=== PATIENT | female | born 1970 | race Caucasian/White ===

== ENCOUNTER 2017-10-12 15:10 | Inpatient (IN) | payer BC ==
[2017-10-12] MEDS: NS 1,000 ML IV (16:46)
[2017-10-12] MEDS: ONDANSETRON 4MG/2ML VIAL (J2405) IV (16:46)
[2017-10-12 16:49] LABS: BASO # 0.1 10^3/uL (0.0-0.2); BASO % 0.2 % (0.0-1.0); IMMATURE GRANULOCYTE # 0.1 10^3/uL (0-0); IMMATURE GRANULOCYTE % 0.6 % (0-0); LYMPH # 0.5 10^3/uL (1.5-4.5); LYMPH % 2.2 % (24.0-44.0); MEAN CORPUSCULAR HEMOGLOBIN 29.1 pg (27.0-33.0); MEAN CORPUSCULAR HGB CONC 34.6 g/dl (32.0-36.5); MEAN CORPUSCULAR VOLUME 84.1 fl (80.0-96.0); MONO # 0.1 10^3/uL (0.0-0.8); MONO % 0.4 % (0.0-5.0); NEUTROPHILS # 20.1 10^3/uL (1.8-7.7); NEUTROPHILS % 96.6 % (36.0-66.0); PLATELET COUNT, AUTOMATED 323 10^3/uL (150-450); RED CELL DISTRIBUTION WIDTH 12.1 % (11.5-14.5); WHITE BLOOD COUNT 20.8 10^3/uL (4.0-10.0)
[2017-10-12] MEDS: MORPHINE 4 MG/ML 1ML SYRINGE IV ×2 (16:52→17:37)
[2017-10-12 17:09] LABS: CONTROL LINE HCG INT CTR LINE PRESENT
[2017-10-12 17:10] LABS: ALBUMIN/GLOBULIN RATIO 0.87 (1.00-1.93); ALKALINE PHOSPHATASE 96 U/L (45-117); ALT/SGPT 26 U/L (12-78); AMYLASE 31 U/L (25-115); ANION GAP 10 MEQ/L (8-16); AST/SGOT 15 U/L (7-37); BILIRUBIN,DIRECT 0.2 MG/DL (0.0-0.2); BILIRUBIN,TOTAL 0.7 MG/DL (0.2-1.0); BLOOD UREA NITROGEN 12 MG/DL (7-18); CALCIUM LEVEL 8.3 MG/DL (8.5-10.1); CARBON DIOXIDE LEVEL 24 MEQ/L (21-32); CHLORIDE LEVEL 104 MEQ/L (98-107); CREATININE FOR GFR 1.21 MG/DL (0.55-1.02); GLUCOSE, FASTING 140 MG/DL (70-105); POTASSIUM SERUM 3.7 MEQ/L (3.5-5.1); SODIUM LEVEL 138 MEQ/L (136-145); TOTAL PROTEIN 8.6 GM/DL (6.4-8.2)
[2017-10-12] MEDS ORDERED: ISOVUE-370 76% 100ML VIAL (Q9967) As Ordered (17:14)
[2017-10-12 17:16] LABS: LACTIC ACID SEPSIS PROTOCOL 2.7 MMOL/L (0.4-2.0)
[2017-10-12] MEDS: ACETAMINOPHEN 325 MG TAB PO (18:05)
[2017-10-12] MEDS ORDERED: NS 1,000 ML IV (18:15)
[2017-10-12] MEDS: CEFTRIAXONE SOD 2 GM in APPROPRIATE DILUENT 1 EA IV (18:16)
[2017-10-12 18:19] LABS: CONTROL LINE UCG INT CTR LINE PRESENT
[2017-10-12 18:23] LABS: KETONE, URINE AUTO RFX NEGATIVE (NEGATIVE); MUCUS, URINE RFX SMALL (NEGATIVE); RBC, URINE AUTO RFX 54 /HPF (0-3); SPECIFIC GRAVITY UR AUTO RFX 1.028 (1.002-1.035); SQUAM EPITHELIAL CELL UR AURFX 1 /HPF (0-6)
[2017-10-12 18:25] LABS: LEUKOCYTE ESTERASE UR AUTO RFX 1+ (NEGATIVE); NITRITE, URINE AUTO RFX POSITIVE (NEGATIVE); WBC, URINE AUTO RFX 22 /HPF (0-3)
[2017-10-12] MEDS ORDERED: MIDAZOLAM INJ 2 MG/2 ML VIAL (J2250) As Ordered (18:35)
[2017-10-12] MEDS ORDERED: fentaNYL 100 MCG/2 ML INJECTION (J3010) As Ordered (18:35)
[2017-10-12] MEDS ORDERED: LIDOCAINE 2% INJ 100 MG/5 ML SDV (FOR ANES.) As Ordered (18:38)
[2017-10-12] MEDS ORDERED: PROPOFOL 200 MG/20 ML VIAL As Ordered (18:38)
[2017-10-12] MEDS: CONRAY-60 60% 50ML VIAL (Q9961) As Ordered (19:11)
[2017-10-12] MEDS: GENTAMICIN SULF INJ 80MG/2ML VIAL (J1580) As Ordered ×2 (19:12→19:28)
[2017-10-12] MEDS ORDERED: dexameTHASONE 4 MG/ML 1ML VIAL (J1100) As Ordered (19:26)
[2017-10-12] MEDS ORDERED: ONDANSETRON 4MG/2ML VIAL (J2405) As Ordered (19:26)
[2017-10-12] MEDS ORDERED: ONDANSETRON 4MG/2ML VIAL (J2405) IV ×2 (20:00→20:15)
[2017-10-12] MEDS ORDERED: MORPHINE 2 MG/ML 1ML SYRINGE IV (20:00)
[2017-10-12] MEDS ORDERED: fentaNYL 100 MCG/2 ML INJECTION (J3010) IV (20:15)
[2017-10-12] MEDS: DOCUSATE SODIUM 100 MG CAP PO (21:48)
[2017-10-12] MEDS: HEPARIN SOD (PORCINE) 5000 UNITS/ML VIAL SC (21:52)
[2017-10-12] MEDS: ACETAMINOPH W/CODEINE #3 TAB UD PO (22:15)
[2017-10-13] MEDS: LR 1,000 ML IV (00:26)
[2017-10-13] MEDS ORDERED: CEFAZOLIN SOD 1 GM in APPROPRIATE DILUENT 1 EA IV (03:00)
[2017-10-13] MEDS: GENTAMICIN 80 MG in APPROPRIATE DILUENT 1 EA IV (03:26)
[2017-10-13] MEDS: CEFAZOLIN SOD 1 GM in APPROPRIATE DILUENT 1 EA IV (04:29)
[2017-10-13] MEDS: D5W/LR 1,000 ML IV ×4 (06:31→19:24)
[2017-10-13] MEDS: HEPARIN SOD (PORCINE) 5000 UNITS/ML VIAL SC ×3 (06:35→20:38)
[2017-10-13 08:21] LABS: BASO # 0.1 10^3/uL (0.0-0.2); BASO % 0.3 % (0.0-1.0); IMMATURE GRANULOCYTE # 0.6 10^3/uL (0-0); IMMATURE GRANULOCYTE % 1.7 % (0-0); LYMPH # 1.1 10^3/uL (1.5-4.5); LYMPH % 3.2 % (24.0-44.0); MEAN CORPUSCULAR HEMOGLOBIN 29.1 pg (27.0-33.0); MEAN CORPUSCULAR HGB CONC 34.6 g/dl (32.0-36.5); MEAN CORPUSCULAR VOLUME 84.2 fl (80.0-96.0); MONO % 3.1 % (0.0-5.0); NEUTROPHILS % 91.7 % (36.0-66.0); PLATELET COUNT, AUTOMATED 244 10^3/uL (150-450); POS COUNT POS FLAG; POSITIVE DIFF POS FLAG; RED CELL DISTRIBUTION WIDTH 13.1 % (11.5-14.5); WHITE BLOOD COUNT 33.8 10^3/uL (4.0-10.0)
[2017-10-13] MEDS: NS 1,000 ML IV (08:24)
[2017-10-13] MEDS: GENTAMICIN 160 MG in D5W 50 ML IV (08:24)
[2017-10-13 08:37] LABS: ALBUMIN 2.8 GM/DL (3.2-5.2); ALKALINE PHOSPHATASE 58 U/L (45-117); ALT/SGPT 17 U/L (12-78); ANION GAP 9 MEQ/L (8-16); AST/SGOT 19 U/L (7-37); BILIRUBIN,TOTAL 0.4 MG/DL (0.2-1.0); BLOOD UREA NITROGEN 14 MG/DL (7-18); CALCIUM LEVEL 7.3 MG/DL (8.5-10.1); CARBON DIOXIDE LEVEL 23 MEQ/L (21-32); CHLORIDE LEVEL 109 MEQ/L (98-107); CREATININE FOR GFR 1.26 MG/DL (0.55-1.02); GLOMERULAR FILTRATION RATE 48.7 (>58); GLUCOSE, FASTING 145 MG/DL (70-105); POTASSIUM SERUM 3.8 MEQ/L (3.5-5.1); SODIUM LEVEL 141 MEQ/L (136-145); TOTAL PROTEIN 5.9 GM/DL (6.4-8.2)
[2017-10-13] MEDS: DOCUSATE SODIUM 100 MG CAP PO ×2 (08:39→20:38)
[2017-10-13] MEDS: oxyBUTYnin *DITROPAN XL* 5 MG TABCR PO (08:39)
[2017-10-13] MEDS: PANTOPRAZOLE 40MG TAB (PROTONIX) PO (08:40)
[2017-10-13 08:43] LABS: LACTIC ACID SEPSIS PROTOCOL 3.2 MMOL/L (0.4-2.0)
[2017-10-13] MEDS: SODIUM CHLORIDE 0.9% 1000 ML IV (10:45)
[2017-10-13] MEDS: PIPERACILLIN/TAZOBACTAM SOD 3.375 GM in APPROPRIATE DILUENT 1 EA IV ×3 (12:14→23:26)
[2017-10-13] MEDS: ACETAMINOPHEN TAB 650MG DOSE (2X325MG) PO (20:38)
[2017-10-14] MEDS: D5W/LR 1,000 ML IV (03:48)
[2017-10-14] MEDS: ACETAMINOPHEN TAB 650MG DOSE (2X325MG) PO ×2 (04:19→12:24)
[2017-10-14 05:12] LABS: MEAN CORPUSCULAR HEMOGLOBIN 29.2 pg (27.0-33.0); MEAN CORPUSCULAR HGB CONC 34.6 g/dl (32.0-36.5); MEAN CORPUSCULAR VOLUME 84.3 fl (80.0-96.0); PLATELET COUNT, AUTOMATED 214 10^3/uL (150-450); RED CELL DISTRIBUTION WIDTH 13.2 % (11.5-14.5)
[2017-10-14 05:27] LABS: ALBUMIN 2.5 GM/DL (3.2-5.2); ALBUMIN/GLOBULIN RATIO 0.64 (1.00-1.93); ALKALINE PHOSPHATASE 64 U/L (45-117); ALT/SGPT 17 U/L (12-78); ANION GAP 7 MEQ/L (8-16); AST/SGOT 24 U/L (7-37); BILIRUBIN,TOTAL 0.5 MG/DL (0.2-1.0); BLOOD UREA NITROGEN 10 MG/DL (7-18); CALCIUM LEVEL 7.9 MG/DL (8.5-10.1); CARBON DIOXIDE LEVEL 24 MEQ/L (21-32); CHLORIDE LEVEL 110 MEQ/L (98-107); CREATININE FOR GFR 0.85 MG/DL (0.55-1.02); GLOMERULAR FILTRATION RATE > 60.0 (>58); GLUCOSE, FASTING 132 MG/DL (70-105); MAGNESIUM LEVEL 1.9 MG/DL (1.8-2.4); POTASSIUM SERUM 3.2 MEQ/L (3.5-5.1); SODIUM LEVEL 141 MEQ/L (136-145); TOTAL PROTEIN 6.4 GM/DL (6.4-8.2)
[2017-10-14] MEDS: HEPARIN SOD (PORCINE) 5000 UNITS/ML VIAL SC ×3 (06:06→22:06)
[2017-10-14] MEDS: PIPERACILLIN/TAZOBACTAM SOD 3.375 GM in APPROPRIATE DILUENT 1 EA IV (06:06)
[2017-10-14 09:00] LABS: LACTIC ACID SEPSIS PROTOCOL 1.1 MMOL/L (0.4-2.0)
[2017-10-14] MEDS: POTASSIUM CHLORIDE 10 MEQ SR TABLET PO (09:01)
[2017-10-14] MEDS: DOCUSATE SODIUM 100 MG CAP PO ×2 (09:01→21:00)
[2017-10-14] MEDS: PANTOPRAZOLE 40MG TAB (PROTONIX) PO (09:01)
[2017-10-14] MEDS: oxyBUTYnin *DITROPAN XL* 5 MG TABCR PO (09:02)
[2017-10-14] MEDS: CEFTRIAXONE SOD 1 GM in APPROPRIATE DILUENT 1 EA IV (12:24)
[2017-10-14] MEDS: ACETAMINOPH W/CODEINE #3 TAB UD PO (16:57)
[2017-10-14] MEDS ORDERED: ISOVUE-370 76% 100ML VIAL (Q9967) As Ordered (17:44)
[2017-10-15] MEDS: CEFTRIAXONE SOD 1 GM in APPROPRIATE DILUENT 1 EA IV ×2 (00:42→12:03)
[2017-10-15] MEDS: ACETAMINOPHEN TAB 650MG DOSE (2X325MG) PO ×3 (00:43→21:28)
[2017-10-15 05:58] LABS: MEAN CORPUSCULAR HEMOGLOBIN 28.7 pg (27.0-33.0); MEAN CORPUSCULAR HGB CONC 33.6 g/dl (32.0-36.5); MEAN CORPUSCULAR VOLUME 85.3 fl (80.0-96.0); PLATELET COUNT, AUTOMATED 226 10^3/uL (150-450); WHITE BLOOD COUNT 15.8 10^3/uL (4.0-10.0)
[2017-10-15 06:16] LABS: ALBUMIN 2.6 GM/DL (3.2-5.2); ALBUMIN/GLOBULIN RATIO 0.67 (1.00-1.93); ALKALINE PHOSPHATASE 71 U/L (45-117); ALT/SGPT 17 U/L (12-78); ANION GAP 8 MEQ/L (8-16); AST/SGOT 20 U/L (7-37); BILIRUBIN,TOTAL 0.3 MG/DL (0.2-1.0); BLOOD UREA NITROGEN 8 MG/DL (7-18); CALCIUM LEVEL 8.1 MG/DL (8.5-10.1); CARBON DIOXIDE LEVEL 23 MEQ/L (21-32); CHLORIDE LEVEL 110 MEQ/L (98-107); CREATININE FOR GFR 0.84 MG/DL (0.55-1.02); GLOMERULAR FILTRATION RATE > 60.0 (>58); GLUCOSE, FASTING 86 MG/DL (70-105); MAGNESIUM LEVEL 1.9 MG/DL (1.8-2.4); POTASSIUM SERUM 3.6 MEQ/L (3.5-5.1); SODIUM LEVEL 141 MEQ/L (136-145); TOTAL PROTEIN 6.5 GM/DL (6.4-8.2)
[2017-10-15] MEDS: HEPARIN SOD (PORCINE) 5000 UNITS/ML VIAL SC ×3 (06:17→21:28)
[2017-10-15] MEDS: PANTOPRAZOLE 40MG TAB (PROTONIX) PO (10:10)
[2017-10-15] MEDS: DOCUSATE SODIUM 100 MG CAP PO ×2 (10:11→21:00)
[2017-10-15] MEDS: oxyBUTYnin *DITROPAN XL* 5 MG TABCR PO (10:11)
[2017-10-16] MEDS: CEFTRIAXONE SOD 1 GM in APPROPRIATE DILUENT 1 EA IV ×3 (00:32→23:38)
[2017-10-16] MEDS ORDERED: SLF 3 ML SYR IV (03:00)
[2017-10-16 04:57] LABS: MEAN CORPUSCULAR HEMOGLOBIN 29.5 pg (27.0-33.0); MEAN CORPUSCULAR HGB CONC 34.8 g/dl (32.0-36.5); MEAN CORPUSCULAR VOLUME 84.9 fl (80.0-96.0); PLATELET COUNT, AUTOMATED 269 10^3/uL (150-450); RED CELL DISTRIBUTION WIDTH 12.9 % (11.5-14.5); WHITE BLOOD COUNT 11.5 10^3/uL (4.0-10.0)
[2017-10-16 05:12] LABS: ALBUMIN 2.7 GM/DL (3.2-5.2); ALBUMIN/GLOBULIN RATIO 0.64 (1.00-1.93); ALKALINE PHOSPHATASE 95 U/L (45-117); ALT/SGPT 36 U/L (12-78); ANION GAP 7 MEQ/L (8-16); AST/SGOT 38 U/L (7-37); BILIRUBIN,TOTAL 0.3 MG/DL (0.2-1.0); BLOOD UREA NITROGEN 9 MG/DL (7-18); CALCIUM LEVEL 8.1 MG/DL (8.5-10.1); CARBON DIOXIDE LEVEL 25 MEQ/L (21-32); CHLORIDE LEVEL 110 MEQ/L (98-107); CREATININE FOR GFR 0.91 MG/DL (0.55-1.02); GLOMERULAR FILTRATION RATE > 60.0 (>58); GLUCOSE, FASTING 91 MG/DL (70-105); MAGNESIUM LEVEL 2.2 MG/DL (1.8-2.4); POTASSIUM SERUM 3.8 MEQ/L (3.5-5.1); SODIUM LEVEL 142 MEQ/L (136-145); TOTAL PROTEIN 6.9 GM/DL (6.4-8.2)
[2017-10-16] MEDS: SLF 3 ML SYR IV ×3 (05:33→23:37)
[2017-10-16] MEDS: HEPARIN SOD (PORCINE) 5000 UNITS/ML VIAL SC (05:33)
[2017-10-16] MEDS: PANTOPRAZOLE 40MG TAB (PROTONIX) PO (08:26)
[2017-10-16] MEDS: oxyBUTYnin *DITROPAN XL* 5 MG TABCR PO (08:26)
[2017-10-16] MEDS: ACETAMINOPHEN TAB 650MG DOSE (2X325MG) PO (21:07)
[2017-10-17] MEDS: ACETAMINOPHEN TAB 650MG DOSE (2X325MG) PO (02:05)
[2017-10-17] MEDS: SLF 3 ML SYR IV (05:09)
[2017-10-17 05:25] LABS: MEAN CORPUSCULAR HEMOGLOBIN 28.5 pg (27.0-33.0); MEAN CORPUSCULAR HGB CONC 34.2 g/dl (32.0-36.5); MEAN CORPUSCULAR VOLUME 83.4 fl (80.0-96.0); PLATELET COUNT, AUTOMATED 297 10^3/uL (150-450); RED CELL DISTRIBUTION WIDTH 12.6 % (11.5-14.5); WHITE BLOOD COUNT 11.9 10^3/uL (4.0-10.0)
[2017-10-17 05:40] LABS: ALBUMIN 2.8 GM/DL (3.2-5.2); ALBUMIN/GLOBULIN RATIO 0.82 (1.00-1.93); ALKALINE PHOSPHATASE 104 U/L (45-117); ALT/SGPT 59 U/L (12-78); ANION GAP 9 MEQ/L (8-16); AST/SGOT 49 U/L (7-37); BILIRUBIN,TOTAL 0.2 MG/DL (0.2-1.0); BLOOD UREA NITROGEN 11 MG/DL (7-18); CALCIUM LEVEL 7.9 MG/DL (8.5-10.1); CARBON DIOXIDE LEVEL 23 MEQ/L (21-32); CHLORIDE LEVEL 110 MEQ/L (98-107); CREATININE FOR GFR 0.81 MG/DL (0.55-1.02); GLOMERULAR FILTRATION RATE > 60.0 (>58); GLUCOSE, FASTING 91 MG/DL (70-105); MAGNESIUM LEVEL 2.4 MG/DL (1.8-2.4); POTASSIUM SERUM 3.8 MEQ/L (3.5-5.1); SODIUM LEVEL 142 MEQ/L (136-145); TOTAL PROTEIN 6.2 GM/DL (6.4-8.2)
[2017-10-17] MEDS: PANTOPRAZOLE 40MG TAB (PROTONIX) PO (09:06)
[2017-10-17] MEDS: oxyBUTYnin *DITROPAN XL* 5 MG TABCR PO (09:07)
== END 2017-10-17 10:02 | disposition home or self-care (01) | DRG 720 ==
LOC: M MSPAV 10-16 16:12 → M ED 15:10 → M SDC 18:57 → M PCU 20:40 → M SDC 21:18 → M PCU 20:00
PROC: 0T778DZ Dilation of Left Ureter with Intraluminal Device, Via Natural or Artificial Opening Endoscopic (ICD-10-PCS; principal; 2017-10-12 18:32)
DX: A41.9 Sepsis, unspecified organism (principal); E87.2 Acidosis; N20.1 Calculus of ureter; Z68.41 Body mass index [BMI] 40.0-44.9, adult; E66.9 Obesity, unspecified; K21.9 Gastro-esophageal reflux disease without esophagitis; B96.20 Unspecified Escherichia coli [E. coli] as the cause of diseases classified elsewhere; N39.0 Urinary tract infection, site not specified

== ENCOUNTER → 2017-10-29 | Outpatient (REF) | payer BC ==
[2017-10-29 18:16] LABS: AMORPHOUS SEDIMENT SMALL (NEGATIVE); APPEARANCE, URINE CLOUDY (CLEAR); BACTERIA, URINE AUTO NEGATIVE (NEGATIVE); BILIRUBIN, URINE AUTO NEGATIVE (NEGATIVE); BLOOD, URINE BLOOD 3+ (NEGATIVE); COLOR, URINE YELLOW (YELLOW); GLUCOSE, URINE (UA) AUTO NEGATIVE (NEGATIVE); KETONE, URINE AUTO NEGATIVE (NEGATIVE); LEUKOCYTE ESTERASE, URINE AUTO 2+ (NEGATIVE); MUCUS, URINE SMALL (NEGATIVE); NITRITE, URINE AUTO NEGATIVE (NEGATIVE); PROTEIN, URINE AUTO 2+ mg/dL (NEGATIVE); RBC, URINE AUTO TNTC /HPF (0-3); SQUAMOUS EPITHELIAL CELL UR AU 2 /HPF (0-6); UROBILINOGEN, URINE AUTO 0.2 mg/dL (0.0-2.0); WBC, URINE AUTO 43 /HPF (0-3)
== END ==
LOC: M SMT 17:22
DX: N13.2 Hydronephrosis with renal and ureteral calculous obstruction (principal); N39.0 Urinary tract infection, site not specified
CPT/HCPCS: 81001

== ENCOUNTER 2017-11-02 05:42 | Day surgery (SDC) | payer BC ==
[2017-11-02] MEDS ORDERED: LIDOCAINE 2% INJ 100 MG/5 ML SDV (FOR ANES.) As Ordered ×2 (07:04→10:53)
[2017-11-02] MEDS ORDERED: METOCLOPRAMIDE INJ 10MG/2ML VIAL (J2765) As Ordered (07:04)
[2017-11-02] MEDS ORDERED: ONDANSETRON 4MG/2ML VIAL (J2405) As Ordered ×2 (07:04→10:54)
[2017-11-02] MEDS ORDERED: PROPOFOL 200 MG/20 ML VIAL As Ordered ×2 (07:04→10:53)
[2017-11-02] MEDS ORDERED: MIDAZOLAM INJ 2 MG/2 ML VIAL (J2250) As Ordered ×2 (07:05→09:30)
[2017-11-02] MEDS ORDERED: fentaNYL 100 MCG/2 ML INJECTION (J3010) As Ordered ×3 (07:05→10:08)
[2017-11-02] MEDS: LIDOCAINE 1% MDV 20ML VIAL SQ (07:10)
[2017-11-02 07:15] LABS: INR 0.85; PROTHROMBIN TIME 11.6 SECONDS (12.4-14.5)
[2017-11-02] MEDS: LR 1,000 ML IV (07:19)
[2017-11-02] MEDS: CONRAY-60 60% 50ML VIAL (Q9961) As Ordered (07:49)
[2017-11-02] MEDS ORDERED: KETOROLAC 60 MG/2 ML VIAL (J1885) As Ordered ×2 (07:49→10:54)
[2017-11-02] MEDS ORDERED: PERCOCET 5MG/325MG TAB PO ×3 (08:30)
[2017-11-02] MEDS ORDERED: fentaNYL 100 MCG/2 ML INJECTION (J3010) IV (08:30)
[2017-11-02] MEDS ORDERED: LR 1,000 ML IV (08:30)
[2017-11-02] MEDS ORDERED: ONDANSETRON 4MG/2ML VIAL (J2405) IV (08:30)
[2017-11-02] MEDS ORDERED: METOCLOPRAMIDE INJ 10MG/2ML VIAL (J2765) IV (08:30)
[2017-11-02] MEDS ORDERED: SUGAMMADEX SODIUM 500 MG/5 ML VIAL (BRIDION) As Ordered (10:53)
[2017-11-02] MEDS ORDERED: ROCURONIUM BROMIDE 50 MG/5 ML VIAL As Ordered (10:53)
== END 2017-11-02 10:20 | disposition home or self-care (01) ==
LOC: M SDC 05:42
DX: N20.1 Calculus of ureter (principal); K21.9 Gastro-esophageal reflux disease without esophagitis; Z87.442 Personal history of urinary calculi; Z87.440 Personal history of urinary (tract) infections; Z86.19 Personal history of other infectious and parasitic diseases; Z79.899 Other long term (current) drug therapy
CPT/HCPCS: 52332

== ENCOUNTER → 2017-11-16 | Outpatient (REF) | payer BC ==
[2017-11-16 14:00] LABS: APPEARANCE, URINE CLOUDY (CLEAR); BACTERIA, URINE AUTO 1+ (NEGATIVE); BILIRUBIN, URINE AUTO NEGATIVE (NEGATIVE); BLOOD, URINE BLOOD 2+ (NEGATIVE); COLOR, URINE YELLOW (YELLOW); GLUCOSE, URINE (UA) AUTO NEGATIVE (NEGATIVE); KETONE, URINE AUTO NEGATIVE (NEGATIVE); LEUKOCYTE ESTERASE, URINE AUTO 1+ (NEGATIVE); MUCUS, URINE SMALL (NEGATIVE); NITRITE, URINE AUTO NEGATIVE (NEGATIVE); PROTEIN, URINE AUTO NEGATIVE (NEGATIVE); RBC, URINE AUTO 2 /HPF (0-3); SPECIFIC GRAVITY URINE AUTO 1.019 (1.002-1.035); SQUAMOUS EPITHELIAL CELL UR AU 10 /HPF (0-6); UROBILINOGEN, URINE AUTO 0.2 mg/dL (0.0-2.0); WBC, URINE AUTO 10 /HPF (0-3)
== END ==
LOC: M SMT 13:08
DX: N20.1 Calculus of ureter (principal)
CPT/HCPCS: 81001

== ENCOUNTER → 2018-01-18 | Outpatient (CLI) | payer BC | LOC: M RAD 12:01 | DX: R10.9 Unspecified abdominal pain (principal); K76.0 Fatty (change of) liver, not elsewhere classified | CPT/HCPCS: 74176 ==

== ENCOUNTER → 2018-01-18 | Outpatient (CLI) | payer BC ==
[2018-01-18 13:41] LABS: HEMATOCRIT 43.2 % (36.0-47.0); HEMOGLOBIN 14.5 g/dl (12.0-15.5); MEAN CORPUSCULAR HEMOGLOBIN 28.8 pg (27.0-33.0); MEAN CORPUSCULAR HGB CONC 33.6 g/dl (32.0-36.5); MEAN CORPUSCULAR VOLUME 85.7 fl (80.0-96.0); PLATELET COUNT, AUTOMATED 399 10^3/uL (150-450); RED BLOOD COUNT 5.04 10^6/uL (4.00-5.40); RED CELL DISTRIBUTION WIDTH 13.5 % (11.5-14.5); WHITE BLOOD COUNT 10.6 10^3/uL (4.0-10.0)
[2018-01-18 13:54] LABS: APPEARANCE, URINE HAZY (CLEAR); BACTERIA, URINE AUTO 1+ (NEGATIVE); BILIRUBIN, URINE AUTO NEGATIVE (NEGATIVE); BLOOD, URINE BLOOD NEGATIVE (NEGATIVE); COLOR, URINE YELLOW (YELLOW); GLUCOSE, URINE (UA) AUTO NEGATIVE (NEGATIVE); KETONE, URINE AUTO NEGATIVE (NEGATIVE); LEUKOCYTE ESTERASE, URINE AUTO 1+ (NEGATIVE); MUCUS, URINE SMALL (NEGATIVE); NITRITE, URINE AUTO NEGATIVE (NEGATIVE); PROTEIN, URINE AUTO NEGATIVE (NEGATIVE); RBC, URINE AUTO 1 /HPF (0-3); SPECIFIC GRAVITY URINE AUTO 1.017 (1.002-1.035); SQUAMOUS EPITHELIAL CELL UR AU 2 /HPF (0-6); UROBILINOGEN, URINE AUTO 0.2 mg/dL (0.0-2.0); WBC, URINE AUTO 38 /HPF (0-3)
== END ==
LOC: M SMT 10:56
DX: R10.9 Unspecified abdominal pain (principal); R82.90 Unspecified abnormal findings in urine
CPT/HCPCS: 85027

== ENCOUNTER → 2018-04-28 | Outpatient (REF) | payer BC ==
[2018-05-04 12:09] LABS: HPV LOW VOL RFLX Negative (Negative)
== END ==
LOC: M LAB REF 12:33
DX: Z12.4 Encounter for screening for malignant neoplasm of cervix (principal); R87.610 Atypical squamous cells of undetermined significance on cytologic smear of cervix (ASC-US)
CPT/HCPCS: G0123

== ENCOUNTER → 2018-05-04 | Outpatient (CLI) | payer BC | LOC: M RAD 16:53 | DX: N92.4 Excessive bleeding in the premenopausal period (principal); D25.1 Intramural leiomyoma of uterus | CPT/HCPCS: 76856 ==

== ENCOUNTER 2018-05-15 11:12 | Emergency (ER) | payer BC ==
[2018-05-15] MEDS: MORPHINE 10 MG/ML 1ML VIAL (J2270) IM (11:46)
[2018-05-15] MEDS: METHOCARBAMOL 500 MG TAB PO (11:46)
[2018-05-15] MEDS: predniSONE 20 MG TAB PO (11:46)
== END 2018-05-15 13:14 | disposition home or self-care (01) ==
LOC: M ED 11:12
DX: M54.42 Lumbago with sciatica, left side (principal)
CPT/HCPCS: J2270

== ENCOUNTER → 2018-09-23 | Outpatient (REF) | payer BC ==
[2018-09-23 14:00] LABS: APPEARANCE, URINE CLOUDY (CLEAR); BACTERIA, URINE AUTO 1+ (NEGATIVE); BILIRUBIN, URINE AUTO NEGATIVE (NEGATIVE); BLOOD, URINE BLOOD NEGATIVE (NEGATIVE); CALCIUM OXALATE CRYSTALS LARGE; COLOR, URINE YELLOW (YELLOW); GLUCOSE, URINE (UA) AUTO NEGATIVE (NEGATIVE); KETONE, URINE AUTO 1+ mg/dL (NEGATIVE); LEUKOCYTE ESTERASE, URINE AUTO NEGATIVE (NEGATIVE); MUCUS, URINE SMALL (NEGATIVE); NITRITE, URINE AUTO NEGATIVE (NEGATIVE); PROTEIN, URINE AUTO NEGATIVE (NEGATIVE); RBC, URINE AUTO 1 /HPF (0-3); SPECIFIC GRAVITY URINE AUTO 1.017 (1.002-1.035); SQUAMOUS EPITHELIAL CELL UR AU 3 /HPF (0-6); UROBILINOGEN, URINE AUTO 0.2 mg/dL (0.0-2.0); WBC, URINE AUTO 3 /HPF (0-3)
== END ==
LOC: M SMT 13:23
DX: M54.9 Dorsalgia, unspecified (principal)
CPT/HCPCS: 81001

== ENCOUNTER → 2018-09-27 | Outpatient (CLI) | payer BC | LOC: M RAD 17:28 | DX: M54.9 Dorsalgia, unspecified (principal) | CPT/HCPCS: 76775 ==

== ENCOUNTER 2019-04-08 06:04 | Day surgery (SDC) | payer BC ==
[~2019-04-08] VITALS: Ht 154.9 cm; Wt 75.2 kg
[~2019-04-08 06:04] MED LIST: BACT800T5 PO; IBUP80TA PO; OXYB5TAB10 PO; OXYC1TAB23 PO; PRED20TA PO; ROBA500T PO; VITAD1000T PO
[2019-04-08] MEDS ORDERED: ESTA0.25 PO (06:38)
[2019-04-08 06:40] LABS: HEMATOCRIT 40.5 % (36.0-47.0); HEMOGLOBIN 13.8 g/dl (12.0-15.5); MEAN CORPUSCULAR HEMOGLOBIN 29.8 pg (27.0-33.0); MEAN CORPUSCULAR HGB CONC 34.1 g/dl (32.0-36.5); MEAN CORPUSCULAR VOLUME 87.5 fl (80.0-96.0); PLATELET COUNT, AUTOMATED 336 10^3/uL (150-450); RED BLOOD COUNT 4.63 10^6/uL (4.00-5.40)
[2019-04-08] MEDS ORDERED: BUPIVACAINE HCL 0.25% 30 ML VIAL As Ordered ONE (06:55)
[2019-04-08] MEDS ORDERED: METHYLENE BLUE 0.5% (5MG/ML) 10 ML AMP (PROVAYBLUE)(Q9968 PER 1MG) As Ordered ONE (06:56)
[2019-04-08] MEDS ORDERED: LR 1,000 ML IV ONE (07:00)
[2019-04-08 07:10] LABS: BLOOD UREA NITROGEN 10 MG/DL (7-18); CALCIUM LEVEL 8.9 MG/DL (8.5-10.1); CARBON DIOXIDE LEVEL 27 MEQ/L (21-32); CHLORIDE LEVEL 110 MEQ/L (98-107); CREATININE FOR GFR 0.83 MG/DL (0.55-1.30); GLOMERULAR FILTRATION RATE > 60.0 (>58); GLUCOSE, FASTING 104 MG/DL (70-100); POTASSIUM SERUM 3.9 MEQ/L (3.5-5.1); SODIUM LEVEL 143 MEQ/L (136-145)
[2019-04-08] MEDS ORDERED: dexameTHASONE 4 MG/ML 1ML VIAL (J1100) As Ordered ONE (08:03)
[2019-04-08] MEDS ORDERED: fentaNYL 250 MCG/5 ML INJECTION (J3010) As Ordered ONE (08:03)
[2019-04-08] MEDS ORDERED: HYDROmorphone HCL 2 MG/ML 1ML VIAL (J1170) As Ordered ONE (08:03)
[2019-04-08] MEDS ORDERED: KETOROLAC 60 MG/2 ML VIAL (J1885) As Ordered ONE (08:03)
[2019-04-08] MEDS ORDERED: ACETAMINOPHEN 1000MG 100ML IV BTL (OFIRMEV) (J0131 PER 10MG) As Ordered ONE (08:03)
[2019-04-08] MEDS ORDERED: PROPOFOL 200 MG/20 ML VIAL As Ordered ONE (08:03)
[2019-04-08] MEDS ORDERED: MIDAZOLAM INJ 2 MG/2 ML VIAL (J2250) As Ordered ONE (08:03)
[2019-04-08] MEDS ORDERED: LIDOCAINE 2% INJ 100 MG/5 ML SDV (FOR ANES.) As Ordered ONE (08:03)
[2019-04-08] MEDS ORDERED: ONDANSETRON 4MG/2ML VIAL (J2405) As Ordered ONE (08:03)
[2019-04-08] MEDS ORDERED: ROCURONIUM BROMIDE 50 MG/5 ML VIAL As Ordered ONE (08:03)
[2019-04-08] MEDS ORDERED: SUGAMMADEX SODIUM 500 MG/5 ML VIAL (BRIDION) As Ordered ONE (08:17)
[2019-04-08] MEDS ORDERED: OXYC1TAB23 PO (10:48)
[2019-04-08] MEDS ORDERED: PERCOCET 5MG/325MG TAB PO PRN ×2 (11:00)
[2019-04-08] MEDS ORDERED: MORPHINE 4 MG/ML 1ML VIAL/SYRINGE (J2270) IV PRN (11:00)
[2019-04-08] MEDS ORDERED: PROMETHAZINE INJ 25 MG/ML VIAL (J2550) IV PRN (11:00)
[2019-04-08] MEDS ORDERED: LR 1,000 ML IV SCH ×2 (11:00)
[2019-04-08] MEDS ORDERED: oxyCODONE 5MG TAB PO PRN (11:00)
[2019-04-08] MEDS: fentaNYL 100 MCG/2 ML INJECTION (J3010) IV PRN ×4 (11:00→11:38)
[2019-04-08] MEDS ORDERED: zolPIDEM TARTRATE 5 MG TAB PO PRN (11:00)
[2019-04-08] MEDS ORDERED: ONDANSETRON 4MG/2ML VIAL (J2405) IV PRN (11:00)
--- NOTE | 2019-04-08 11:54 | RO ---
DATE OF PROCEDURE: 04/08/2019 PREOPERATIVE DIAGNOSES: 1. Abnormal uterine bleeding. 2. Fibroid uterus. POSTOPERATIVE DIAGNOSES: 1. Abnormal uterine bleeding. 2. Fibroid uterus. PROCEDURES PERFORMED: 1. Robotic-assisted laparoscopic hysterectomy. 2. Lysis of adhesions. 3. Bilateral salpingectomy. 4. Morcellation of uterus. 5. Cystoscopy. SURGEON: Tiffany Bone MD [facility] PROVIDER: Trang Bowers NP and resident Fadia Card, PGY3 ANESTHESIA: Endotracheal anesthesia. ESTIMATED BLOOD LOSS: 175 mL. IV FLUIDS: 1300 mL Lactated Ringer's solution. URINE OUTPUT: 400 mL. PREOPERATIVE ANTIBIOTICS: 2 grams of Ancef. INFECTION CLASSIFICATION: 2 SPECIMENS: Morcellated cervix, uterus and bilateral fallopian tubes. OPERATIVE FINDINGS: Patient with a large fibroid uterus. Normal bilateral adnexa. Cystoscopic findings revealed normal bladder mucosa, bilateral ureteral jets were observed. No foreign body or objects on cystoscopy DESCRIPTION OF OPERATION: After informed consent was obtained written consent was reviewed, the patient brought to operating room where she was placed under general endotracheal anesthesia. She was then placed in lithotomy position, was prepped and draped in a normal sterile fashion. A time out in the operating room was then performed identifying the patient, procedure be performed as well as drug allergies. A speculum was then placed revealing the cervix. The anterior and posterior aspects of the cervix were stitched with #0 Vicryl. A medium VCare uterine manipulator was advanced through cervical os and it was insufflated with 7 mL of air. A cervical cap was then advanced over the cervix, vaginal sleeve was advanced into the vagina. The speculum was then removed. Mosqueda catheter was then placed set to gravity. Gloves were changed and attention was turned to the patient's abdomen where a Veress needle was placed through the umbilicus. A pneumoperitoneum was then obtained with CO2 gas. The supraumbilical area was then infused with 0.25% Marcaine. An incision was made in this area. An 8 mm trocar and sleeve was advanced through this incision. Laparoscope was then placed revealing intra-abdominal placement. Three additional port sites were placed, one to the patient's right side of her abdomen parallel to the umbilicus. This was infused with 0.25% Marcaine incision was made in this area and an 8 mm trocar and sleeve was advanced through this incision under direct visualization. Two additional port sites were placed to the left side of the patient's abdomen and one parallel to the umbilicus and one slightly above. Each of these areas was infused with 0.25% Marcaine. Incision was made in each one of these areas and an 8 mm trocar and sleeve was advanced through each one of these incisions under direct visualization. Next, the da Wendie was docked, utilizing the camera arm and two operative arms. Lysis of adhesions performed. There were omental adhesions to the anterior abdominal wall that were cauterized and ligated using the vessel sealer. Next, the mesosalpinx bilaterally were cauterized and ligated with good hemostasis noted. The utero-ovarian ligaments bilaterally were cauterized and ligated with good hemostasis noted. The round ligaments on both sides were cauterized and ligated with good hemostasis noted. Next, the anterior lip of the broad ligaments were then dissected along the bladder creating a bladder flap. The remainder of the broad and cardinal ligaments were then cauterized and ligated with good hemostasis noted. The uterine vessels were then skeletonized bilaterally, cauterized and ligated with good hemostasis noted. Next, utilizing Endo monopolar scissors anterior and posterior colpotomies were then made and the uterus was detached. The da Wendie was then undocked. I then proceeded with morcellation of the uterus vaginally. Vesicouterine retractors were used as well as right angle retractors to enter the vagina. The uterus then cored out and I continued to morcellate the uterus and was able to remove the specimen in several pieces. Da Wendie was then re-docked. Surgical sites were inspected and noted be hemostatic. The vaginal cuff was then closed using #0 V-Loc suture in a running nonlocking fashion. Surgical sites were irrigated and suctioned. Lane was applied over the surgical field. The da Wendie was then undocked, mosqueda catheter was removed and a cystoscopy was performed . Cystoscope was advanced transurethrally through the bladder and cystoscopy was performed showing normal bladder mucosa. No foreign objects. Bilateral ureteral jets were observed. The cystoscope was then removed. The bladder was drained. Attention was then turned to the patient's abdomen where all four port sites were closed with #4-0 Monocryl and was dressed with DERMABOND. The patient was then taken out of lithotomy position. She was awakened from anesthesia, taken recovery in stable condition. Counts were correct. Trang Bowers, my surgical specialist, played an essential role during the surgery. She assisted with port placement, manipulation of the uterus as well as removal of the uterus and port closure. ANGEL
[2019-04-08 16:00] VITALS: BP 125/70
[2019-04-08] MEDS ORDERED: KETOROLAC 30 MG/ML VIAL (J1885) IV SCH (16:00)
--- NOTE | 2019-04-09 16:54 | ECGEPIP ---
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
== END 2019-04-08 16:17 | disposition home or self-care (01) ==
LOC: M SDC 06:04
PROVIDERS: ATTEND Obstetrics & Gynecology
DX: N93.9 Abnormal uterine and vaginal bleeding, unspecified (principal); N72 Inflammatory disease of cervix uteri; D25.1 Intramural leiomyoma of uterus; N73.6 Female pelvic peritoneal adhesions (postinfective)
CPT/HCPCS: 36415; 58571; 80048; 85027; 86850; 86900; 86901; 88307; 93005; J0131; J0690; J1100; J1170; J1885; J2250; J2405; J3010; Q9968

== ENCOUNTER 2019-04-10 18:49 | Observation (INO) | payer BC ==
[~2019-04-10] VITALS: Ht 154.9 cm; Wt 74.5 kg
[~2019-04-10 18:49] MED LIST changes: +ESTA0.25 PO
[2019-04-10] MEDS ORDERED: PERCOCET 5MG/325MG TAB PO ONE (19:30)
[2019-04-10 19:52] LABS: BASO # 0.1 10^3/uL (0.0-0.2); BASO % 0.3 % (0.0-1.0); EOS % 0.1 % (0.0-3.0); HEMATOCRIT 40.2 % (36.0-47.0); HEMOGLOBIN 13.5 g/dl (12.0-15.5); LYMPH # 2.3 10^3/uL (1.5-4.5); LYMPH % 15.2 % (24.0-44.0); MEAN CORPUSCULAR HEMOGLOBIN 30.1 pg (27.0-33.0); MEAN CORPUSCULAR HGB CONC 33.6 g/dl (32.0-36.5); MEAN CORPUSCULAR VOLUME 89.5 fl (80.0-96.0); MONO # 0.9 10^3/uL (0.0-0.8); MONO % 5.9 % (0.0-5.0); PLATELET COUNT, AUTOMATED 321 10^3/uL (150-450); RED BLOOD COUNT 4.49 10^6/uL (4.00-5.40); WHITE BLOOD COUNT 15.3 10^3/uL (4.0-10.0)
[2019-04-10 20:37] LABS: BACTERIA, URINE AUTO NEGATIVE (NEGATIVE); RBC, URINE AUTO 3 /HPF (0-3); SQUAMOUS EPITHELIAL CELL UR AU 2 /HPF (0-6); WBC, URINE AUTO 1 /HPF (0-3)
[2019-04-10 20:46] LABS: APPEARANCE, URINE CLEAR (CLEAR)
[2019-04-10 20:47] LABS: BILIRUBIN, URINE AUTO NEGATIVE (NEGATIVE); BLOOD, URINE BLOOD NEGATIVE (NEGATIVE); GLUCOSE, URINE (UA) AUTO NEGATIVE (NEGATIVE); KETONE, URINE AUTO NEGATIVE (NEGATIVE); LEUKOCYTE ESTERASE, URINE AUTO NEGATIVE (NEGATIVE); NITRITE, URINE AUTO NEGATIVE (NEGATIVE); PROTEIN, URINE AUTO NEGATIVE (NEGATIVE); SPECIFIC GRAVITY URINE AUTO 1.004 (1.002-1.035); UROBILINOGEN, URINE AUTO 0.2 mg/dL (0.0-2.0)
[2019-04-10 20:48] LABS: COLOR, URINE STRAW (YELLOW)
[2019-04-10] MEDS ORDERED: ISOVUE-370 76% 100ML VIAL (Q9967) As Ordered ONE (20:56)
[2019-04-10] MEDS ORDERED: NS 1,000 ML IV ONE (22:30)
--- NOTE | 2019-04-10 23:00 | REPVR ---
EXAM: CT Abdomen and Pelvis With Contrast EXAM DATE/TIME: 04/10/2019 8:59 PM CLINICAL HISTORY: 48 years old, female; R/O abscess TECHNIQUE: Imaging protocol: Axial computed tomography images of the abdomen and pelvis with intravenous contrast. Coronal and sagittal reformatted images were created and reviewed. Radiation optimization: All CT scans at this facility use at least one of these dose optimization techniques: automated exposure control; mA and/or kV adjustment per patient size (includes targeted exams where dose is matched to clinical indication); or iterative reconstruction. Contrast material: ISOVUE 370; Contrast volume: 100 ml; Contrast route: IV; COMPARISON: US PELVIC NON-OB COMPLETE 05/04/2018 5:02:[address] ABD PELVIS W/O CONTRAST 01/18/2018 12:04:[address] ABD/PEL W/IV CONTRAST ONLY 10/14/2017 5:52 PM FINDINGS: Lungs: The imaged lung bases are clear. Heart: No cardiomegaly or pericardial effusion is noted. Liver: Unremarkable. No liver lesion is seen. The contour of the liver is smooth. No hepatomegaly is noted. Incidental note is made of focal fatty infiltration of the liver adjacent to the falciform ligament. Gallbladder and bile ducts: No calcified gallstones are seen. No gallbladder wall thickening, pericholecystic fluid, or pericholecystic inflammatory changes are identified. No dilation of the intrahepatic or extrahepatic bile ducts is noted. Pancreas: Normal. No ductal dilation. Spleen: Normal. No splenomegaly is noted. Incidental note is made of 2 small accessory spleens. Adrenals: Normal. No mass. Kidneys and ureters: The kidneys are normal in appearance. No renal lesion is identified. No calculi are seen in the kidneys or ureters. There is no hydronephrosis or hydroureter. There are no wedge-shaped areas of low attenuation in the kidneys to suggest pyelonephritis. There is no renal abscess or perinephric fluid collection. Stomach and bowel: There is no evidence for a bowel obstruction, diverticulosis, diverticulitis, colitis, pneumatosis intestinalis, intussusception, or volvulus. This scar tissue extending from the right side of the distal sigmoid colon to the right ovary (images 115-118 of the axial series 201). Appendix: The retrocecal appendix is dilated and measures up to 10 mm in diameter and there is mild inflammatory fat stranding around the appendix, which are findings that can be seen with acute appendicitis (images 84-102 of the axial series 201 and images 49-54 of the coronal series 202). There is no appendicolith. There is gas within the tip of the appendix. Intraperitoneal space: There are foci or free air in the pelvis and right and left lower quadrants of the abdomen. There is a 4.1 cm x 1.6 cm x 2 cm fluid collection in the pelvis just superior to the vaginal cuff (image 125 of the axial series 201, image 59 of the coronal series 202, and image 55 of the sagittal series 203) which may represent an abscess or postoperative seroma. Vasculature: The abdominal aorta is normal in caliber and patent. The iliac arteries, common femoral arteries, renal arteries, celiac artery, superior mesenteric artery, and inferior mesenteric artery are patent. The renal veins, hepatic veins, portal veins, splenic vein, superior mesenteric vein, and inferior mesenteric vein are patent. Lymph nodes: Normal. No enlarged lymph nodes. Bladder: There is gas in the urinary bladder, which should be correlated with recent instrumentation. No calculi are noted in the bladder. Reproductive: A hysterectomy has been performed since the prior pelvic ultrasound on 05/04/2018. The ovaries are unremarkable. Bones/joints: The imaged bony structures are intact. There is no suspicious osteolytic or osteoblastic lesion. Soft tissues: There is soft tissue, soft tissue edema, and foci of gas in the anterior abdominal wall, which are likely related to recent surgery. IMPRESSION: 1. Dilated retrocecal appendix measuring 10 mm in diameter with mild surrounding inflammatory changes, which are findings that can be seen with acute appendicitis. 2. Status post hysterectomy, and there is a 4.1 cm x 1.6 cm x 2 cm fluid collection in the pelvis just superior to the vaginal cuff, which may represent postoperative seroma or abscess. 3. Foci of free air in the pelvis and right and left lower quadrants of the abdomen, which may be related to recent surgery. 4. Gas in the urinary bladder, which should be correlated with recent instrumentation. Electronically signed by: Favio Gurrola On 04/10/2019 22:59:50 PM
[2019-04-10] MEDS ORDERED: OXYC1TAB23 PO (23:40)
[2019-04-10] MEDS ORDERED: MULTCAP PO (23:40)
[2019-04-11] MEDS ORDERED: PERCOCET 5MG/325MG TAB PO PRN ×2
[2019-04-11] MEDS ORDERED: AMPICILLIN SOD/SULBACTAM SOD 3 GM in D5W MINI-BAG PLUS 100 ML IV ONE (00:30)
[2019-04-11 01:30] VITALS: BP 131/76
[2019-04-11] MEDS: AMPICILLIN SOD/SULBACTAM SOD 3 GM in D5W MINI-BAG PLUS 100 ML IV SCH ×3 (01:56→12:44)
[2019-04-11] MEDS: LR 1,000 ML IV SCH ×2 (01:56→10:34)
[2019-04-11 08:00] VITALS: BP 110/57
--- NOTE | 2019-04-11 09:23 | HPE ---
DATE OF ADMISSION: 04/10/2019 REASON FOR ADMISSION: Postoperative fever. HISTORY OF PRESENT ILLNESS: Ms. Marcelo is a 48-year-old 1, para 1 who presents 2 days postop from a robotic-assisted laparoscopic hysterectomy with complaints of fever. She reports earlier today starting to feel flushed, took her temperature, at which time she reported a temperature of 101. Presented to the emergency department. She reports minimal vaginal bleeding. Has had good pain control with ibuprofen for postop pain. She denies any upper respiratory symptoms, any dysuria. PAST MEDICAL HISTORY: History of kidney stones. History of septic shock. PAST SURGICAL HISTORY: She is postop day #2 from robotic-assisted laparoscopic hysterectomy, bilateral salpingectomy, lysis of adhesions and cystoscopy. She has had renal stents. MEDICATIONS INCLUDE: Ibuprofen and Percocet ALLERGIES: She has no known drug allergies. SOCIAL HISTORY: Denies any alcohol, tobacco or drug use during her . VITAL SIGNS: Her initial vitals on presentation was 101.3, pulse was 114. Her current vitals: temperature 99.4, pulse 76, respirations 16, blood pressure 131/76. General Appearance: Well appearing, no acute distress. Her lungs are clear to auscultation bilaterally. Cardiovascular: Heart regular rate and rhythm. Her abdomen is appropriate tender, nondistended, soft. Her port sites are well-approximated and dressed with Dermabond. LABS: Urine was unremarkable. CBC: white count was 15.3, hematocrit 40.2, hemoglobin 13.5 and her platelets are 321. She had a CT scan that demonstrated dilated retrocecal appendix measuring 10 mm, mild surrounding inflammatory changes. There is 4.1 x 1.6 x 2 cm fluid collection of the pelvis just superior to the vaginal cuff. ASSESSMENT: 1. Ms. Marcelo is a 48-year-old 1, para 1, postop day #2 from robotic hysterectomy with postoperative fever, currently stable and afebrile. CT findings with concerns of possible appendicitis. Will await evaluation for general surgery Dr. Willingham. 2. Fluid collection in the vaginal cuff: This most likely represents a seroma. Cannot completely exclude an abscess, although unlikely considering the timing from her surgery. PLAN: Started on broad-spectrum antibiotics. Continued observation. Will await, Dr. Willingham's evaluation for appendicitis.
[2019-04-11] MEDS ORDERED: AUGM500T34 PO (14:38)
--- NOTE | 2019-04-11 19:26 | CR ---
DATE OF CONSULTATION: 04/11/2019 REASON FOR CONSULT: Possible appendicitis. HISTORY OF PRESENT ILLNESS: The patient is a 48-year-old female patient of Dr. Butt who recently underwent robotic hysterectomy on Thursday over the weekend she developed some fevers and she came into emergency room for evaluation. In the ER she denied any significant abdominal pain. No nausea or vomiting just a slight fever. CT scan was done that showed possible dilated appendix with some surrounding inflammation as well as a 4.1 cm fluid collection in the pelvis superior to the vaginal cuff abscess because of that I was asked to evaluate this morning. She is still denying any significant abdominal pains. Her fevers have resolved. No fever since she has been here. Her white count was elevated on admission at 15.3, repeat is still pending and she has no other concerns at this time. PAST MEDICAL HISTORY: Kidney stones, septic shock. PAST SURGICAL HISTORY: Robotic hysterectomy. Postop day #2. ALLERGIES: None. MEDICATIONS: Ibuprofen, Percocet. SOCIAL HISTORY: Denies drug, alcohol, tobacco abuse. FAMILY HISTORY: Noncontributory. REVIEW OF SYSTEMS: Pertinent, positives, and negatives as stated in the HPI. PHYSICAL EXAMINATION: GENERAL: Alert and oriented times three. No acute distress. VITALS: Temperature 97.1, pulse 76, respirations 18, blood pressure 110/57, pulse ox 99% room air. HEENT: Pupils equally round react to light accommodation. HEART: S1-S2 regular rate and rhythm. LUNGS: Clear bilaterally. ABDOMEN: Soft, slight tenderness to palpation lower abdomen with no significant increase in pain on the right versus the left. No rebounding or guarding. No rigidity. No signs of ventral hernias. EXTREMITIES: No clubbing, cyanosis or edema. LABORATORY DATA: White count 15.3, hemoglobin 13.5 as of yesterday. IMAGING STUDIES: CT abdomen and pelvis shows a retrocecal appendix dilated up to 10 mm. There is mild inflammation of amatory stranding around it could be suspicious for acute appendicitis. There is also gas within the tip of the appendix. There is foci of free air in the pelvis and the right and left lower quadrants 4.1 x 1.6 x 2.0 cm fluid collection in the pelvis superior to the vaginal cuff that could represent abscess versus postoperative seroma. ASSESSMENT/PLAN: A 48-year-old female postop from hysterectomy with some mild fevers and elevated white count. At this time there is concern for possible appendicitis. However, given her history of recent surgery. It is more likely that these symptoms are all related to postoperative changes as opposed to the acute appendicitis. On exam her pain is the same bilaterally. She has never had any really increasing pain in the right side and she is essentially denying pain in general. At this time I explained her that it is possible to have acute appendicitis. Coincidentally this soon after surgery. However, it is unlikely that this point it is more likely that this is all just reactive changes to her surgery. Therefore I recommend that we treated it as if it is a mild appendicitis just in case to treat her 7 days if she does spike fevers again after discharge or has pain localizing more to the right side the abdomen then they can call me and I will gladly reevaluate and consider appendectomy at that time. She was grateful with this decision and understands and will call me with any questions. Edited: michaela 04/13/2019 0920 [email or web address]
== END 2019-04-11 15:20 | disposition home or self-care (01) ==
LOC: M ED 18:49 → M ED INP 18:50 → M PED 04-11 01:10
PROVIDERS: ADMIT Obstetrics & Gynecology; ATTEND Obstetrics & Gynecology
DX: R50.82 Postprocedural fever (principal); L76.34 Postprocedural seroma of skin and subcutaneous tissue following other procedure
CPT/HCPCS: 74177; 80047; 81001; 83605; 85025; 87040; 87086; 96361; 96365; 96366; 99284; Q9967

== ENCOUNTER → 2022-07-06 | Outpatient (CLI) | payer BC ==
[~2022-07-06] MED LIST changes: +AUGM500T34 PO; +CHOL100029 PO; +D3 H10002 PO; +FLUO20CA22 PO; +MULTCAP PO; -VITAD1000T PO; +VITMTA PO
== END ==
LOC: M LABSMTC 11:49
PROVIDERS: ATTEND Anesthesiology
DX: Z01.818 Encounter for other preprocedural examination (principal); Z11.52 Encounter for screening for COVID-19

== ENCOUNTER → 2022-08-28 | Outpatient (REF) | payer BC | LOC: M LAB REF 16:57 | PROVIDERS: ATTEND Nurse Practitioner Family | DX: F43.23 Adjustment disorder with mixed anxiety and depressed mood (principal) ==

== ENCOUNTER → 2022-09-16 | Outpatient (REF) | payer BC ==
[2022-09-16 19:07] LABS: APPEARANCE, URINE MANUAL CLEAR (CLEAR); BILIRUBIN, URINE MANUAL NEGATIVE (NEGATIVE); BLOOD URINE MANUAL POSITIVE (NEGATIVE); COLOR, URINE MANUAL LT YELLOW (YELLOW); GLUCOSE, URINE (UA) MANUAL NEGATIVE (NEGATIVE); KETONE, URINE MANUAL NEGATIVE (NEGATIVE); LEUKOCYTE ESTERASE, URINE MAN POSITIVE (NEGATIVE); NITRITE, URINE MANUAL NEGATIVE (NEGATIVE); PROTEIN, URINE MANUAL TRACE mg/dL (NEGATIVE); UROBILINOGEN, URINE MANUAL NORMAL (NORMAL)
[2022-09-16 21:00] LABS: BACTERIA, URINE LARGE AMOUNT; SQUAMOUS EPITHELIAL CELL URINE SMALL AMOUNT /hpf (SMALL AMT); WBC, URINE 40-50 /hpf (0-3)
== END ==
LOC: M LAB REF 17:55
PROVIDERS: ATTEND Nurse Practitioner Family
DX: N39.0 Urinary tract infection, site not specified (principal)

== ENCOUNTER → 2022-10-29 | Outpatient (CLI) | payer OTHER ==
[2022-10-29 11:54] LABS: BASO # 0.1 10^3/uL (0.0-0.2); BASO % 0.8 % (0.0-1.0); EOS # 0.1 10^3/uL (0.0-0.5); EOS % 1.1 % (0.0-3.0); HEMATOCRIT 44.5 % (36.0-47.0); HEMOGLOBIN 14.8 g/dl (12.0-15.5); LYMPH # 1.9 10^3/uL (1.5-5.0); LYMPH % 15.3 % (24.0-44.0); MEAN CORPUSCULAR HEMOGLOBIN 29.2 pg (27.0-33.0); MEAN CORPUSCULAR HGB CONC 33.3 g/dl (32.0-36.5); MEAN CORPUSCULAR VOLUME 87.9 fl (80.0-96.0); MONO # 0.8 10^3/uL (0.0-0.8); MONO % 6.3 % (2.0-8.0); NEUTROPHILS # 9.3 10^3/uL (1.5-8.5); PLATELET COUNT, AUTOMATED 355 10^3/uL (150-450); RED BLOOD COUNT 5.06 10^6/uL (4.00-5.40); WHITE BLOOD COUNT 12.3 10^3/uL (4.0-10.0)
[2022-10-29 12:09] LABS: APPEARANCE, URINE MANUAL CLOUDY (CLEAR); BILIRUBIN, URINE MANUAL NEGATIVE (NEGATIVE); BLOOD URINE MANUAL POSITIVE (NEGATIVE); COLOR, URINE MANUAL YELLOW (YELLOW); GLUCOSE, URINE (UA) MANUAL NEGATIVE (NEGATIVE); KETONE, URINE MANUAL NEGATIVE (NEGATIVE); LEUKOCYTE ESTERASE, URINE MAN POSITIVE (NEGATIVE); NITRITE, URINE MANUAL TRACE (NEGATIVE); PROTEIN, URINE MANUAL 3+ mg/dL (NEGATIVE); UROBILINOGEN, URINE MANUAL NORMAL (NORMAL)
[2022-10-29 12:18] LABS: RBC, URINE TNTC /hpf (0-3); SQUAMOUS EPITHELIAL CELL URINE NONE SEEN /hpf (SMALL AMT); WBC, URINE TNTC /hpf (0-3)
[2022-10-29 12:19] LABS: BACTERIA, URINE LARGE AMOUNT; HYALINE CAST, URINE NONE SEEN /lpf (0-1)
[2022-10-29 12:20] LABS: AMORPHOUS SEDIMENT, URINE SMALL AMOUNT (NEGATIVE)
[2022-10-29 12:23] LABS: ALKALINE PHOSPHATASE 97 U/L (46-116); ALT/SGPT 18 U/L (7.0-40); AST/SGOT 15 U/L (<34); BILIRUBIN,TOTAL 0.6 MG/DL (0.3-1.2); BLOOD UREA NITROGEN 15 MG/DL (9-23); CALCIUM LEVEL 9.3 MG/DL (8.5-10.1); CARBON DIOXIDE LEVEL 29 MMOL/L (20-31); CHLORIDE LEVEL 103 MMOL/L (98-107); GLOMERULAR FILTRATION RATE > 60.0 (>51); GLUCOSE, FASTING 88 MG/DL (60-100); POTASSIUM SERUM 4.5 MMOL/L (3.5-5.1); SODIUM LEVEL 139 MMOL/L (136-145); TOTAL PROTEIN 7.4 G/DL (5.7-8.2)
== END ==
LOC: M LAB 10:36
DX: R39.9 Unspecified symptoms and signs involving the genitourinary system (principal)

== ENCOUNTER → 2022-11-21 | Outpatient (CLI) | payer OTHER ==
[2022-11-21 10:10] LABS: ALBUMIN 3.5 G/DL (3.2-5.2); ALKALINE PHOSPHATASE 75 U/L (46-116); ALT/SGPT 14 U/L (7.0-40); AST/SGOT 16 U/L (<34); BILIRUBIN,TOTAL 0.6 MG/DL (0.3-1.2); BLOOD UREA NITROGEN 12 MG/DL (9-23); CALCIUM LEVEL 9.2 MG/DL (8.5-10.1); CARBON DIOXIDE LEVEL 28 MMOL/L (20-31); CHLORIDE LEVEL 106 MMOL/L (98-107); CHOLESTEROL LEVEL 189 MG/DL (<200); CHOLESTEROL RISK RATIO 4.66 (<5); CREATININE FOR GFR 0.92 MG/DL (0.55-1.30); GLOMERULAR FILTRATION RATE > 60.0 (>51); GLUCOSE, FASTING 96 MG/DL (60-100); HDL CHOLESTEROL 40.5 MG/DL (>40); LDL CHOLESTEROL 123.3 MG/DL (<100); NON-HDL-C 149 MG/DL; POTASSIUM SERUM 4.3 MMOL/L (3.5-5.1); SODIUM LEVEL 140 MMOL/L (136-145); TOTAL PROTEIN 6.9 G/DL (5.7-8.2); TRIGLYCERIDES LEVEL 126 MG/DL (<150)
== END ==
LOC: M LAB 08:53
PROVIDERS: ATTEND Nurse Practitioner Family
DX: Z00.00 Encounter for general adult medical examination without abnormal findings (principal)

== ENCOUNTER → 2023-01-15 | Outpatient (REF) | payer OTHER ==
[2023-01-15 16:27] LABS: APPEARANCE, URINE HAZY (CLEAR); BACTERIA, URINE AUTO 1+ (NEGATIVE); BILIRUBIN, URINE AUTO NEGATIVE (NEGATIVE); BLOOD, URINE BLOOD NEGATIVE (NEGATIVE); COLOR, URINE YELLOW (YELLOW); GLUCOSE, URINE (UA) AUTO NEGATIVE (NEGATIVE); KETONE, URINE AUTO NEGATIVE (NEGATIVE); LEUKOCYTE ESTERASE, URINE AUTO 1+ (NEGATIVE); NITRITE, URINE AUTO NEGATIVE (NEGATIVE); PROTEIN, URINE AUTO NEGATIVE (NEGATIVE); RBC, URINE AUTO 2 /HPF (0-3); SPECIFIC GRAVITY URINE AUTO 1.005 (1.002-1.035); SQUAMOUS EPITHELIAL CELL UR AU 1 /HPF (0-6); UROBILINOGEN, URINE AUTO 0.2 mg/dL (0.0-2.0); WBC, URINE AUTO 17 /HPF (0-3)
== END ==
LOC: M SMT 15:30
PROVIDERS: ATTEND Physician Assistant
DX: N39.0 Urinary tract infection, site not specified (principal)

== ENCOUNTER → 2023-02-12 | Outpatient (CLI) | payer OTHER | LOC: M WHC 13:53 | PROVIDERS: ATTEND Physician Assistant | DX: N13.0 Hydronephrosis with ureteropelvic junction obstruction (principal); N39.0 Urinary tract infection, site not specified; Z87.442 Personal history of urinary calculi ==

== ENCOUNTER → 2023-02-25 | Outpatient (CLI) | payer OTHER ==
[2023-02-25 09:37] LABS: BASO # 0.1 10^3/uL (0.0-0.2); BASO % 1.3 % (0.0-1.0); EOS # 0.3 10^3/uL (0.0-0.5); HEMATOCRIT 43.1 % (36.0-47.0); HEMOGLOBIN 14.1 g/dl (12.0-15.5); LYMPH # 1.8 10^3/uL (1.5-5.0); LYMPH % 24.3 % (24.0-44.0); MEAN CORPUSCULAR HEMOGLOBIN 29.3 pg (27.0-33.0); MEAN CORPUSCULAR HGB CONC 32.7 g/dl (32.0-36.5); MEAN CORPUSCULAR VOLUME 89.4 fl (80.0-96.0); MONO # 0.6 10^3/uL (0.0-0.8); MONO % 7.6 % (2.0-8.0); NEUTROPHILS # 4.6 10^3/uL (1.5-8.5); NEUTROPHILS % 62.1 % (36.0-66.0); PLATELET COUNT, AUTOMATED 330 10^3/uL (150-450); RED BLOOD COUNT 4.82 10^6/uL (4.00-5.40); WHITE BLOOD COUNT 7.4 10^3/uL (4.0-10.0)
[2023-02-25 09:55] LABS: APPEARANCE, URINE HAZY (CLEAR); BACTERIA, URINE AUTO 1+ (NEGATIVE); BILIRUBIN, URINE AUTO NEGATIVE (NEGATIVE); BLOOD, URINE BLOOD NEGATIVE (NEGATIVE); COLOR, URINE YELLOW (YELLOW); GLUCOSE, URINE (UA) AUTO NEGATIVE (NEGATIVE); KETONE, URINE AUTO NEGATIVE (NEGATIVE); LEUKOCYTE ESTERASE, URINE AUTO 2+ (NEGATIVE); MUCUS, URINE SMALL (NEGATIVE); NITRITE, URINE AUTO NEGATIVE (NEGATIVE); PROTEIN, URINE AUTO NEGATIVE (NEGATIVE); RBC, URINE AUTO 4 /HPF (0-3); SPECIFIC GRAVITY URINE AUTO 1.015 (1.002-1.035); SQUAMOUS EPITHELIAL CELL UR AU 6 /HPF (0-6); UROBILINOGEN, URINE AUTO 0.2 mg/dL (0.0-2.0); WBC, URINE AUTO 53 /HPF (0-3)
[2023-02-25 10:07] LABS: BLOOD UREA NITROGEN 11 MG/DL (9-23); CALCIUM LEVEL 8.6 MG/DL (8.5-10.1); CARBON DIOXIDE LEVEL 29 MMOL/L (20-31); CHLORIDE LEVEL 106 MMOL/L (98-107); CREATININE FOR GFR 0.86 MG/DL (0.55-1.30); GLOMERULAR FILTRATION RATE > 60.0 (>51); GLUCOSE, FASTING 92 MG/DL (60-100); POTASSIUM SERUM 4.2 MMOL/L (3.5-5.1); SODIUM LEVEL 140 MMOL/L (136-145)
== END ==
LOC: M RAD 08:57
PROVIDERS: ATTEND Nurse Practitioner Family
DX: Z01.818 Encounter for other preprocedural examination (principal)

== ENCOUNTER 2023-03-06 07:57 | Day surgery (SDC) | payer OTHER ==
[~2023-03-06] VITALS: Ht 154.9 cm; Wt 82.5 kg
[~2023-03-06 07:57] MED LIST changes: +FLUO40CA PO; +MIDAZOLAM INJ 2MG/2ML VIAL As Ordered ONE; +ceFAZolin SOD 2 GM in IV 1 EA IV ONE; +fentaNYL 100 MCG/2 ML INJECTION As Ordered ONE; +propofoL 200 MG/20 ML VIAL As Ordered ONE
[2023-03-06] MEDS ORDERED: ONDANSETRON 4MG 2ML VIAL As Ordered ONE (08:19)
[2023-03-06] MEDS ORDERED: LR 1,000 ML IV SCH ×2 (08:20→09:55)
[2023-03-06] MEDS ORDERED: LIDOCAINE 2% 100MG/5ML SDV (FOR ANES.) As Ordered ONE (08:23)
[2023-03-06] MEDS ORDERED: ISOVUE-300 61% 100ML VIAL As Ordered ONE (08:35)
[2023-03-06] MEDS ORDERED: ACETAMINOPHEN 1000MG 100ML IV BAG As Ordered ONE (08:58)
[2023-03-06] MEDS ORDERED: HYDROMORPHONE HCL 0.5 MG/ 0.5 ML SYRINGE IV PRN (09:55)
[2023-03-06] MEDS ORDERED: ONDANSETRON 4MG 2ML VIAL IV PRN (09:55)
[2023-03-06] MEDS ORDERED: fentaNYL 100 MCG/2 ML INJECTION IV PRN (09:55)
[2023-03-06] MEDS ORDERED: oxyCODONE 5MG TAB PO PRN (09:55)
[2023-03-06] MEDS ORDERED: OXYB-54 PO (10:08)
[2023-03-06] MEDS ORDERED: propofoL 200 MG/20 ML VIAL As Ordered ONE (10:12)
[2023-03-06] MEDS ORDERED: oxyBUTYnin 5 MG TAB PO PRN (10:15)
[2023-03-06] MEDS ORDERED: PERCOCET 5MG/325MG TAB PO PRN (10:25)
[2023-03-06 11:35] VITALS: BP 178/99
[2023-03-12 20:12] LABS: CA Oxalate Dihy 70 % (.); Ca Ox Monohydrate 20 % (.); Size 3x5 mm (.)
== END 2023-03-06 12:10 | disposition home or self-care (01) ==
LOC: M SDC 07:57
PROVIDERS: ATTEND Urology
DX: N20.0 Calculus of kidney (principal); F41.9 Anxiety disorder, unspecified; Z87.442 Personal history of urinary calculi; Z79.899 Other long term (current) drug therapy; Z79.2 Long term (current) use of antibiotics
CPT/HCPCS: 52356; 74420; 82365; C1769; C1894; C2617; J0131; J0690; J1100; J2250; J2405; J3010; Q9967

== ENCOUNTER → 2024-04-05 | Outpatient (CLI) | payer OTHER ==
[~2024-04-05] MED LIST changes: +FLUO-365 PO; -FLUO20CA22 PO; -MIDAZOLAM INJ 2MG/2ML VIAL As Ordered ONE; +OXYB-54 PO; -OXYB5TAB10 PO; +OXYB5TAB14 PO; -ceFAZolin SOD 2 GM in IV 1 EA IV ONE; -fentaNYL 100 MCG/2 ML INJECTION As Ordered ONE; -propofoL 200 MG/20 ML VIAL As Ordered ONE
== END ==
LOC: M WHC 06:46
PROVIDERS: ATTEND Nurse Practitioner Family
DX: Z12.31 Encounter for screening mammogram for malignant neoplasm of breast (principal)

== ENCOUNTER → 2024-05-05 | Outpatient (REF) | payer OTHER | LOC: M LAB REF 17:05 | PROVIDERS: ATTEND Nurse Practitioner Family | DX: R30.0 Dysuria (principal); R10.9 Unspecified abdominal pain ==

== ENCOUNTER → 2024-05-27 | Outpatient (CLI) | payer OTHER | LOC: M RAD 14:47 | PROVIDERS: ATTEND Nurse Practitioner Family | DX: R10.9 Unspecified abdominal pain (principal) ==